=== PATIENT | female | born 1995 | race Two or more races ===

== ENCOUNTER 2019-03-19 10:14 | Inpatient (IN) | payer SELFPAY ==
[~2019-03-19] VITALS: Ht 157.5 cm; Wt 93.9 kg
[~2019-03-19 10:14] MED LIST: IBUP-1060 PO; OXYC1TAB15 PO
[2019-03-19] MEDS ORDERED: IV RINGERS,LACTATED 1000ML 1,000 ML IV SCH ×3 (10:34)
[2019-03-19] MEDS ORDERED: CITRIC ACID/SODIUM CITRATE 30 ML SOLUTION. PO ONE (10:45)
[2019-03-19] MEDS ORDERED: OXYTOCIN 30 UNIT/500 ML PREMIX 500 ML IV PRN ×2 (10:45→15:00)
[2019-03-19] MEDS ORDERED: TERBUTALINE 1 MG/ML VIAL. SQ PRN (10:45)
[2019-03-19] MEDS ORDERED: LIDOCAINE 1% PF 30 ML VIAL. INJ PRN (10:45)
[2019-03-19 11:02] VITALS: BP 116/82
[2019-03-19 11:14] LABS: BASO # 0.1 x10^3/uL (0.0-0.2); BASO % 1 % (0-3); EOS # 0.1 x10^3/uL (0.0-0.7); EOS % 1 % (0-3); HEMATOCRIT 35.9 % (36.0-47.0); HEMOGLOBIN 11.9 g/dL (12.0-15.5); LYMPH # 2.5 x10^3/uL (1.0-4.8); LYMPH % 25 % (24-48); MEAN CORPUSCULAR HEMOGLOBIN 25 pg (25-35); MEAN CORPUSCULAR HGB CONC 33 g/dL (31-37); MEAN CORPUSCULAR VOLUME 76 fL (79-100); MONO # 0.7 x10^3/uL (0.0-1.1); MONO % 7 % (0-9); NEUT # 6.9 x10^3/uL (1.8-7.7); NEUT % 67 % (31-73); PLATELET COUNT 187 x10^3/uL (140-400); RED CELL DISTRIBUTION WIDTH 15.5 % (11.5-14.5); WHITE BLOOD COUNT 10.2 x10^3/uL (4.0-11.0)
[2019-03-19] MEDS ORDERED: KETOROLAC 30 MG/ML VIAL. IV PRN (11:45)
[2019-03-19] MEDS ORDERED: fentaNYL PF VIAL 100 MCG/2 ML VIAL ONE (12:12)
[2019-03-19] MEDS ORDERED: ONDANSETRON PF 4 MG/2 ML VIAL. ONE (12:13)
[2019-03-19] MEDS ORDERED: OXYTOCIN 10 UNIT/ML VIAL. ONE ×2 (12:13)
[2019-03-19] MEDS ORDERED: MORPHINE PF 5 MG/10 ML VIAL. ONE (12:14)
--- NOTE | 2019-03-19 12:46 | PDOC1 ---
OB - History Hx of Present Care: Good Care Ultrasounds: Normal mid trimester US Obstetrical Complications: None Medical Complications: None Past Family/Social History * Past Medical, Surgical, Family and Obstetric Histories reviewed from chart. Blood Type: O- Rubella: Immune RPR/VDRL: Negative HBsAG: Negative OB - Chief Complaint & HPI Date of Admission: Date of Admission: Mar 19, 2019 at 10:14 Chief Complaint/History : 2 Para: 2 EDC: Mar 26, 2019 Reason for admission: section Indication for : desires repeat Admission Nurse Assessment Rev: Yes OB - Admission Exam Physical Exam Vitals: VS - Last 72 Hours, by Label Date Time Temp Pulse Resp B/P (MAP) Pulse Ox O2 Delivery O2 Flow Rate FiO2 03/19/19 11:02 98.1 90 16 116/82 (93) Room Air 98.1 HEENT: Normal, Nasal Mucosa Normal, Oropharynx Normal, Moist Membranes, F ontanelles Normal Heart: Regular Rate Lungs: Clear, Equal Abdomen: Gravid Extremities: Normal Pulses, No tenderness or swelling Reflexes: Normal Cervical Dilatation: None Effacement: 0% Membranes: Intact Heart Rate: Normal Accelerations: Accelerations Present Decelerations: No decelerations Short Term Variability: Present Fci Variability: Moderate Assessment/Plan Assessment/Plan TIUP MIKAELTC/S JUANA CENTENO MD Mar 19, 2019 12:46
[2019-03-19] MEDS ORDERED: PHENYLEPHRINE in 0.9% NACL PF 1 MG/10 ML SYRINGE. IV ONE (13:36)
--- NOTE | 2019-03-19 14:55 | PDOC ---
BRIEF OPERATIVE NOTE Date: Mar 19, 2019 Pre-Op Diagnosis TIUP Desires RC/S Post-Op Diagnosis Same Procedure Performed RLTC/S Surgeon Emelina Butler Anesthesia Type: Regional Blood Loss 700cc Specimens Obtained None Findings Female 9#6oz Complications None JUANA CENTENO MD Mar 19, 2019 14:55
[2019-03-19] MEDS ORDERED: MAG HYDROX/ALUMINUM HYD/SIMETH 30 ML ORAL.SUSP PO PRN (15:00)
[2019-03-19] MEDS ORDERED: ZOLPIDEM 5 MG TABLET. PO PRN (15:00)
[2019-03-19] MEDS ORDERED: 0.9 % SODIUM CHLORIDE 10 ML DISP.SYRIN. IV PRN (15:00)
[2019-03-19] MEDS ORDERED: ONDANSETRON PF 4 MG/2 ML VIAL. IV PRN (15:00)
[2019-03-19] MEDS ORDERED: MMR per PROTOCOL. MC PRN (15:00)
[2019-03-19] MEDS ORDERED: diphenhydrAMINE ORAL ELIXIR 12.5 MG/5 ML ML PO PRN (15:00)
--- NOTE | 2019-03-19 15:11 | OP ---
DATE OF SURGERY: 03/19/2019 PREOPERATIVE DIAGNOSIS: Term intrauterine , desires repeat . POSTOPERATIVE DIAGNOSIS: Term intrauterine , desires repeat . PROCEDURE: Repeat low transverse . SURGEON: Colin Tarango MD POWER DISTRIBUTION ENGINEER: Aureliano Butler MD ANESTHESIA: Regional. ESTIMATED BLOOD LOSS: 700 mL. FLUIDS: Crystalloids. FINDINGS: Normal female ; Apgars 8, 9 and 9; weight 9 pounds 6 ounces. Normal uterus, tubes, and ovaries. COMPLICATIONS: None. CONDITION: Stable. DESCRIPTION OF PROCEDURE: Risks, benefits, indications, alternatives, and expectations were discussed in detail with the patient. The patient brought to OR theater, placed in a supine position with left lateral uterine displacement. After adequate regional anesthesia, the patient was prepped and draped in usual sterile manner. Previous low transverse incision was incised sharply with Bovie cautery, carried down through the subcutaneous tissue with Bovie cautery. Rectus fascia was nicked in the midline, extended laterally in each direction with Bovie cautery. Upper edge of rectus fascia was grasped x 2 with Cipriano clamps, both bluntly and sharply with gloved hand and Bovie cautery. The same procedure was carried out on lower edge of rectus fascia. Rectus muscle was split in midline and extended superiorly and inferiorly with Bovie cautery. Parietal peritoneum was entered bluntly with gloved hand. With gentle stretch on rectus muscle, room was made for delivery of the . Jan retractor was placed within the pelvic cavity. Sponges were placed bilaterally. A low transverse hysterotomy incision was made sharply with scalpel with care not to injure any underlying structures, extended superolaterally with gloved hand. Gloved hand was placed within the lower uterine segment. Clear fluid was already noted. With fundal pressure from the permit review assistant, infant was delivered on anterior abdominal wall. cried spontaneously and moved all extremities. Cord was doubly clamped, transected cord between two clamps. was handed to nursing care in attendance. Cord blood samples were taken. Placenta delivered spontaneously intact, 3-vessel cord. Uterus was wiped free of any adherent membranes. The low transverse hysterotomy incision was reapproximated with 0 Monocryl in a running locking manner, imbricated with 0 Monocryl in a vertical mattress stitch fashion. Area of bleeding was controlled with [id number] stitches. Clyde was placed in this area for additional hemostasis. The sponges from the gutters were removed. Adnexa were inspected and noted to be normal. Lower uterine segment was once again inspected and noted to be hemostatic. Rectus muscle after Jan retractor was removed was reapproximated with 3-0 Vicryl incorporating part of the peritoneum in this stitch. Areas of the rectus muscle were inspected and noted to be hemostatic. Rectus fascia was reapproximated with 0 Stratafix PDS in a usual fashion. Subcutaneous tissue was irrigated copiously with warm normal saline. Curt's fascia reapproximated with 2-0 plain. Skin was reapproximated with Insorb jose. Sponge, needle, and instrument counts were correct x 3 per nursing staff. COLIN TARANGO MD DR: ALINE/rey JOB#: [id number] / [id number]
[2019-03-19] MEDS ORDERED: FERROUS SULFATE 325 MG TABLET. PO SCH (17:00)
[2019-03-19 17:04] VITALS: BP 92/49
[2019-03-19 17:30] VITALS: BP 103/55
[2019-03-19 18:33] VITALS: BP 108/67
[2019-03-19 21:00] VITALS: BP 100/56
[2019-03-19] MEDS: ceFAZolin SODIUM IV Push 1 GM VIAL. IVP SCH (21:15)
[2019-03-19] MEDS ORDERED: ceFAZolin SODIUM 1 GM in IV DEXTROSE 5% 50 ML IV SCH (22:00)
[2019-03-19] MEDS: IBUPROFEN 400 MG TABLET. PO SCH (22:06)
[2019-03-20 00:53] VITALS: BP 98/56
[2019-03-20] MEDS: ceFAZolin SODIUM IV Push 1 GM VIAL. IVP SCH ×2 (04:04→10:58)
[2019-03-20 05:05] LABS: BASO % 0 % (0-3); EOS # 0.1 x10^3/uL (0.0-0.7); EOS % 1 % (0-3); HEMATOCRIT 30.2 % (36.0-47.0); HEMOGLOBIN 9.9 g/dL (12.0-15.5); LYMPH % 23 % (24-48); MEAN CORPUSCULAR HEMOGLOBIN 25 pg (25-35); MEAN CORPUSCULAR HGB CONC 33 g/dL (31-37); MEAN CORPUSCULAR VOLUME 77 fL (79-100); MONO # 0.8 x10^3/uL (0.0-1.1); MONO % 9 % (0-9); NEUT # 5.6 x10^3/uL (1.8-7.7); NEUT % 66 % (31-73); PLATELET COUNT 142 x10^3/uL (140-400); RED BLOOD COUNT 3.93 x10^6/uL (3.50-5.40); RED CELL DISTRIBUTION WIDTH 15.4 % (11.5-14.5); WHITE BLOOD COUNT 8.4 x10^3/uL (4.0-11.0)
[2019-03-20] MEDS: DOCUSATE SODIUM 100 MG CAPSULE. PO PRN ×2 (07:44→20:34)
[2019-03-20] MEDS: SIMETHICONE 80 MG TAB.CHEW PO PRN ×2 (07:44→20:34)
[2019-03-20] MEDS: oxyCODONE/APAP 5/325 1 TAB TABLET PO PRN ×4 (07:45→20:36)
--- NOTE | 2019-03-20 09:56 | PDOC ---
Provider Note Provider Note Doing well VSS Dressing CDI FU in AM Vital Sign - Last 24 Hours 03/19/19 03/19/19 03/19/19 03/19/19 11:02 17:04 17:30 18:33 Temp 98.1 97.9 97.9 97.7 98.1 97.9 97.9 97.7 Pulse 90 82 80 93 Resp 16 16 18 18 B/P (MAP) 116/82 (93) 92/49 (63) 103/55 (71) 108/67 (81) Pulse Ox 95 95 96 O2 Delivery Room Air Room Air Room Air Room Air 03/19/19 03/20/19 03/20/19 21:00 00:53 07:45 Temp 97.7 97.6 97.7 97.6 Pulse 83 76 Resp 18 B/P (MAP) 100/56 (71) 98/56 (70) Pulse Ox 96 96 O2 Delivery Room Air Room Air Intake and Output 03/19/19 03/19/19 03/20/19 14:59 22:59 06:59 Intake Total 340 ml 480 ml Output Total 425 ml 1100 ml Balance -85 ml -620 ml CBC - BMP 03/19/19 10:47 03/20/19 04:50 JUANA CENTENO MD Mar 20, 2019 09:56
[2019-03-20 11:24] VITALS: BP 108/67
[2019-03-20] MEDS: MAGNESIUM HYDROXIDE 2,400 MG/30 ML ORAL.SUSP. PO PRN (14:39)
[2019-03-20] MEDS: IBUPROFEN 400 MG TABLET. PO SCH ×2 (14:39→22:59)
[2019-03-20 18:00] VITALS: BP 105/61
[2019-03-20 22:55] VITALS: BP 103/66
[2019-03-21] MEDS: oxyCODONE/APAP 5/325 1 TAB TABLET PO PRN ×3 (05:20→20:39)
[2019-03-21 05:26] VITALS: BP 108/68
[2019-03-21] MEDS: SIMETHICONE 80 MG TAB.CHEW PO PRN (07:33)
[2019-03-21] MEDS: DOCUSATE SODIUM 100 MG CAPSULE. PO PRN ×2 (07:33→18:35)
[2019-03-21] MEDS: IBUPROFEN 400 MG TABLET. PO SCH ×2 (07:33→18:35)
[2019-03-21 14:00] VITALS: BP 110/69
[2019-03-21 17:58] VITALS: BP 118/68
--- NOTE | 2019-03-21 18:19 | PDOC ---
Provider Note Provider Note No complaints VSS Exam normal FU in AM JUANA CENTENO MD Mar 21, 2019 18:19
[2019-03-21] MEDS: MAGNESIUM HYDROXIDE 2,400 MG/30 ML ORAL.SUSP. PO PRN (20:40)
[2019-03-21 22:10] VITALS: BP 113/81
[2019-03-22] MEDS: IBUPROFEN 400 MG TABLET. PO SCH (03:25)
[2019-03-22] MEDS: oxyCODONE/APAP 5/325 1 TAB TABLET PO PRN ×3 (03:25→12:14)
[2019-03-22 06:20] VITALS: BP 108/68
[2019-03-22] MEDS: DOCUSATE SODIUM 100 MG CAPSULE. PO PRN (07:30)
[2019-03-22 10:12] VITALS: BP 104/44
--- NOTE | 2019-03-22 11:30 | PDOC3 ---
OB DISCHARGE SUMMARY DATE OF ADMISSION: 03/19/19 DATE OF DISCHARGE: 03/22/19 REASON FOR ADMISSION: section PROCEDURES: None INTRAPARTUM PROCEDURES: : Low Cerv Trans OPERATIONS: None DISCHARGE DIAGNOSIS: Term Delivered DISCHARGE INFORMATION: Activity, Diet HOSPITAL COURSE Unremarkable CONDITION AT DISCHARGE Stable JUANA CENTENO MD Mar 22, 2019 11:30
[2019-03-22] MEDS ORDERED: OXYC1TAB15 PO (11:34)
[2019-03-22] MEDS ORDERED: NAPR-514 PO (11:34)
[2019-03-22 14:40] VITALS: BP 110/68
--- NOTE | 2019-03-22 15:10 | NUR ---
Discharge Note: Pt. escorted via WC by Ravindra Culver RN to vehicle with NB in car seat, Pt.'s significant other present. Pt. discharged home with family and belongings. Ludmila Samaniego RN
== END 2019-03-22 15:10 | disposition home or self-care (01) | DRG 788 ==
LOC: 3 SO LND 10:14 → 3 NORTH 16:35
PROVIDERS: ADMIT Specialist; ATTEND Specialist
PROC: 10D00Z1 Extraction of Products of Conception, Low, Open Approach (ICD-10-PCS; principal; 2019-03-19)
PROC: 3E0234Z Introduction of Serum, Toxoid and Vaccine into Muscle, Percutaneous Approach (ICD-10-PCS; 2019-03-20)
DX: O34.211 Maternal care for low transverse scar from previous cesarean delivery (principal); O26.893 Other specified pregnancy related conditions, third trimester; Z67.41 Type O blood, Rh negative; Z37.0 Single live birth; Z3A.39 39 weeks gestation of pregnancy
CPT/HCPCS: 36415; 85025; 85461; 86592; 86850; 86900; 86901; J0690; J0696; J1885; J2270; J2370; J2405; J2590; J2791; J3010; J7120